=== PATIENT | male | born 2000 | race Caucasian/White ===

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

== ENCOUNTER 2025-08-31 14:28 | Emergency (ER) | payer MEDICAID, SELFPAY ==
[2025-08-31 14:33] VITALS: BP 137/93; PULSE 72; RESP 18; TEMP 36.7; O2SAT 100
[2025-08-31 15:49] LABS: Glucose Urine UA Negative (Normal); Nitrate Urine Negative (Negative); Specific Gravity, Urine 1.019 (1.005-1.030)
[2025-08-31 15:51] LABS: Add Urine Microscopic? YES
[2025-08-31 15:52] VITALS: BP 120/77; PULSE 55; O2SAT 100
--- NOTE | 2025-08-31 16:03 | W.ED.ABDPA2 ---
HPI - Abdominal Pain General: Chief Complaint: Abdominal Pain Stated Complaint: mid abd pain Time Seen by Provider: 08/31/25 15:27 History of Present Illness: Patient is a 24-year-old male without medical issues that reports to the emergency room with epigastric pain. This started on Tuesday, 4 days ago. This is worse in the morning. Patient was awakened at 5 AM with this severe stabbing pain. This was contained to the epigastrium. He is not a typical drinker, however did have honey whiskey last p.m., which seem to make the issue worse. This is improved in the evening. Mild nausea without emesis. No dysuria. No flank pain. No radiation of the pain. This is sharp and stabbing in nature Associated Symptoms: Denies chills, diarrhea, fever(s), nausea and vomiting Related Data Previous Rx's ?Medication ?Instructions ?Recorded omeprazole 40 mg capsule,delayed 40 mg PO DAILY #30 caps 08/30/25 release pantoprazole 40 mg tablet,delayed 40 mg PO DAILY #30 tabs 08/31/25 release Allergies Allergy/AdvReac Type Severity Reaction Status Date / Time No Known Allergies Allergy Verified 08/30/25 18:15 Review of Systems General: Reports: 10 or more systems reviewed and unremarkable except in HPI and below Const: Denies: fever(s), chills or fatigue ENMT: Denies: throat pain, ear or mastoid pain, nasal congestion or sinus pain Card: Denies: chest pain, palpitations or swelling of feet/ankles Resp: Denies: dyspnea or productive cough GI: Reports: abdominal pain; Denies: nausea, vomiting or diarrhea : Denies: flank pain Musc: Denies: back pain or extremity swelling Skin/Breast: Denies: rash Neuro: Denies: headache(s), numbness in extremities or weakness in extremities PFSH ED PFSH: Social History Smoking and tobacco/nicotine status: current every day tobacco/nicotine user Physical Exam Const: COMMON NORMALS: no acute distress and patient oriented x3 GENERAL APPEARANCE: cooperative; not in distress HENMT: COMMON NORMALS: normocephalic HEAD & SCALP: normal to inspection and normocephalic MOUTH: Normal oral and palatal mucosa present and lip normal THROAT: posterior oropharynx normal and tonsils normal Neck/C-Spine: COMMON NORMALS: no lymphadenopathy, supple and no meningeal signs GENERAL: Yes normal visual inspection and Yes trachea midline Chest: COMMONS NORMALS: normal inspection of the chest Resp: COMMON NORMALS: normal respiratory effort and clear to auscultation bilaterally EFFORT & INSPECTION: Yes able to speak in complete sentences and No respiratory distress AUSCULTATION: clear to auscultation bilaterally, no rales, no rhonchi and no wheezes Cardio: COMMON NORMALS: regular rate, regular rhythm, S1 normal heart sound present, S2 normal heart sound present and No murmurs present (Cardio) RATE: regular rate RHYTHM: regular rhythm HEART SOUNDS: S1 normal heart sound present and S2 normal heart sound present GI: COMMON NORMALS: Normal to inspection, nondistended, normoactive bowel sounds present and Soft to palpation PALPATION: Yes Soft to palpation and Yes Tenderness to palpation present (GI) (epigastric) : COMMON NORMALS: Yes no CVA tenderness BLADDER/KIDNEY EXAM: Yes no CVA tenderness Back/Pelvis: COMMON NORMALS: no CVA tenderness and thoracic and lumbar spine normal to inspection Extremity: COMMON NORMALS: normal to inspection and capillary refill normal Neuro: COMMON NORMALS: patient oriented x3, moves all extremities and no focal motor deficits MENINGEAL SIGNS: Yes no meningeal signs Psych: COMMON NORMALS: mental status grossly normal, Normal thought process present and cooperative THOUGHT PROCESS: Normal thought process present Skin: COMMON NORMALS: no rashes or lesions noted GENERAL SKIN EXAM: no rashes or lesions noted Course Reevaluation(s): Reevaluation #1: Improved after Carafate Vital Signs: Vital signs: Vital Signs Temperature 98.1 F 08/31/25 14:33 Pulse Rate 85 08/31/25 17:10 Respiratory Rate 18 08/31/25 14:33 Blood Pressure 120/70 08/31/25 17:10 Pulse Oximetry 98 08/31/25 17:10 Oxygen Delivery Me thod Room Air 08/31/25 15:52 MDM - Abdominal Pain Medical Decision Making Patient is a pleasant 24-year-old gentleman that comes in with epigastric discomfort. He does have symptoms consistent with gastritis. Hemoglobin is stable. He is not having any melena. He does have pain when he walks. Discussed with patient plan of care. Carafate x 2 g given, and he is having relief from this. Pantoprazole sent to the pharmacy. Discussed no drinking alcohol, or NSAIDs x 1 month. Patient states understanding. Medical Records I reviewed the patient's medical records. Lab Data I reviewed the patient's lab results. 08/31/25 16:06 08/31/25 16:06 Labs/Radiology: Laboratory Results WBC 7.39 10^3/uL (3.29-11.43) 08/31/25 16:06 RBC 4.45 10^6/uL (3.85-5.65) 08/31/25 16:06 Hgb 13.70 g/dL (11.27-16.99) 08/31/25 16:06 Hct 41.5 % (37-53) 08/31/25 16:06 MCV 93.3 fl (82-101) 08/31/25 16:06 MCH 30.8 pg (27-33) 08/31/25 16:06 MCHC 33.0 g/dL (30-55) 08/31/25 16:06 RDW 12.7 % (12.1-15.1) 08/31/25 16:06 Plt Count 198 10^3/cmm (157-399) 08/31/25 16:06 MPV 10.2 fL (7.4-10.4) 08/31/25 16:06 Neut % (Auto) 53.1 % 08/31/25 16:06 Lymph % (Auto) 35.2 % 08/31/25 16:06 [place] % (Auto) 8.5 % 08/31/25 16:06 Eos % (Auto) 2.2 % 08/31/25 16:06 Baso % (Auto) 0.5 % 08/31/25 16:06 Neut # (Auto) 3.92 10^3/uL (1.8-7.7) 08/31/25 16:06 Lymph # (Auto) 2.6 10^3/uL (0.8-4.8) 08/31/25 16:06 [place] # (Auto) 0.6 10^3/uL (0.2-0.9) 08/31/25 16:06 Eos # (Auto) 0.2 10^3/uL (0.0-0.8) 08/31/25 16:06 Baso # (Auto) 0.0 10^3/uL (0.0-0.1) 08/31/25 16:06 Nucleated RBC % (auto) 0 % 08/31/25 16:06 Nucleated RBCs # 0.0 /100WBC 08/31/25 16:06 Sodium 137 mmol/L (136-145) 08/31/25 16:06 Potassium 4.1 mmol/L (3.5-5.1) 08/31/25 16:06 Chloride 100 mmol/L (98-107) 08/31/25 16:06 Carbon Dioxide 28 mmol/L (22-29) 08/31/25 16:06 Anion Gap 13.1 (5-19) 08/31/25 16:06 BUN 11 mg/dL (6-20) 08/31/25 16:06 Creatinine 0.9 mg/dL (0.7-1.2) 08/31/25 16:06 GFR Calculation 104.6 mL/min (90-130) 08/31/25 16:06 Glucose 89 mg/dL (65-115) 08/31/25 16:06 Calculated Osmolality 283 mOsm/kg (285-295) L 08/31/25 16:06 Calcium 9.3 mg/dL (8.5-10.5) 08/31/25 16:06 Total Bilirubin 0.4 mg/dL (0.15-1.2) 08/31/25 16:06 AST 15 U/L (0-40) 08/31/25 16:06 ALT 13 U/L (0-41) 08/31/25 16:06 Alkaline Phosphatase 48 U/L (40-130) 08/31/25 16:06 Total Protein 7.0 g/dL (6.6-8.7) 08/31/25 16:06 Albumin 4.7 g/dL (3.5-5.2) 08/31/25 16:06 Globulin 2.3 g/dL (1.3-4.6) 08/31/25 16:06 Lipase 16 U/L (13-60) 08/31/25 16:06 Urine Color Yellow (Yellow) 08/31/25 15:35 Urine Appearance Turbid (CLEAR) A 08/31/25 15:35 Urine pH 7.5 (5-7) 08/31/25 15:35 Ur Specific [place] 1.019 (1.005-1.030) 08/31/25 15:35 Urine Protein Negative (Negative) 08/31/25 15:35 Urine Glucose (UA) Negative (Normal) 08/31/25 15:35 Urine Ketones Negative (Negative) 08/31/25 15:35 Urine Blood Negative (Negative) 08/31/25 15:35 Urine Nitrate Negative (Negative) 08/31/25 15:35 Urine Bilirubin Negative (Negative) 08/31/25 15:35 Urine Urobilinogen 1.0 mg/dL (Negative) 08/31/25 15:35 Ur Leukocyte Esterase Negative (Negative) 08/31/25 15:35 Urine RBC 0-2 /hpf (0-2) 08/31/25 15:35 Urine WBC 0-5 /hpf (0-5) 08/31/25 15:35 Ur Squamous Epith Cells 0-5 /hpf (0-5) 08/31/25 15:35 Amorphous Sediment Not Reportable 08/31/25 15:35 Urine Bacteria None seen /hpf (NONE) 08/31/25 15:35 Hyaline Casts 0-4 /lpf H 08/31/25 15:35 No radiology studies performed this visit Discharge Plan Discharge Patient Disposition: Home Clinical Impression: Gastritis and duodenitis Condition: Stable Prescriptions: New pantoprazole 40 mg tablet,delayed release (DR/EC) 40 mg PO DAILY Qty: 30 0RF Rx Instructions: Take 1 by mouth daily; further refills per primary care No Action omeprazole 40 mg capsule,delayed release(DR/EC) 40 mg PO DAILY Qty: 30 0RF Discharge Orders: Discharge ED (Routine); Ordered 08/31/25 Ordered By: Grace Dockery Referrals: Brandy Crow PA [Primary Care Provider, Physicians Outbound Sales Professional] Patient Instructions: Gastritis (ED), Abdominal Pain (ED), Patient Portal & Justin Instructions Activity Restrictions/Additional Instructions: - At the pharmacy: Pantoprazole. Use as directed daily. -No NSAIDs. This means no ibuprofen, no naproxen, no aspirin, no BC powder, and Pepto-Bismol does contain aspirin. - No alcohol. No alcohol x 4 weeks -Return to ED with worsening abdominal pain, nausea, vomiting, blood Thank you for choosing [facility] for your healthcare needs today. You have been screened and evaluated and felt safe for discharge. Health conditions do change or evolve sometimes and as such it is important that you follow up with your Primary Doctor to be re checked, 3-5 days is a general good time frame for follow up. You are always welcome to return to the ED for re assessment if your symptoms are worsening or you have new concerns Print Language: Lithuanian Coding Level of Care Code ED Junior Network Administrator for Radha Kiser
[2025-08-31 16:11] LABS: Hematocrit 41.5 % (37-53); Hemoglobin 13.70 g/dL (11.27-16.99); Mean Corpuscular HGB Conc 33.0 g/dL (30-55); Mean Corpuscular Hemoglobin 30.8 pg (27-33); Mean Corpuscular Volume 93.3 fl (82-101); Nucleated Red Blood Cells % 0 %; Platelet Count 198 10^3/cmm (157-399); Red Blood Count 4.45 10^6/uL (3.85-5.65); White Blood Count 7.39 10^3/uL (3.29-11.43)
[2025-08-31 16:27] LABS: Alanine Aminotransferase 13 U/L (0-41); Albumin Level 4.7 g/dL (3.5-5.2); Alkaline Phosphatase 48 U/L (40-130); Anion Gap 13.1 (5-19); Aspartate Amino Transferase 15 U/L (0-40); Blood Urea Nitrogen 11 mg/dL (6-20); Calcium 9.3 mg/dL (8.5-10.5); Carbon Dioxide 28 mmol/L (22-29); Chloride 100 mmol/L (98-107); Globulin 2.3 g/dL (1.3-4.6); Glucose 89 mg/dL (65-115); Lipase 16 U/L (13-60); Osmolality Calculated 283 mOsm/kg (285-295); Potassium 4.1 mmol/L (3.5-5.1); Sodium 137 mmol/L (136-145); Total Protein 7.0 g/dL (6.6-8.7)
[2025-08-31] MEDS: sucralfate 1 gm/10 mL Oral Liq UDC 2 GM PO (16:49)
[2025-08-31 16:57] VITALS: BP 126/78; PULSE 62; O2SAT 100
[2025-08-31 17:10] VITALS: BP 120/70; PULSE 85; O2SAT 98
== END 2025-08-31 17:10 | disposition home or self-care (01) ==
PROVIDERS: Emergency Provider Physician Assistant; PCP Physician Assistant
DX: K29.70 Gastritis, unspecified, without bleeding (principal); K29.80 Duodenitis without bleeding; Z72.0 Tobacco use
CPT/HCPCS: 36415; 80053; 81001; 83690; 85025; 99283; J9999